=== PATIENT | male | born 1955 | race Caucasian/White ===

== ENCOUNTER 2019-08-06 22:27 | Emergency (ER) | payer OTHER ==
[~2019-08-06] VITALS: Ht 182.9 cm; Wt 181.4 kg
[2019-08-06 22:55] VITALS: Ht 182.9 cm; Wt 181.4 kg
[2019-08-06 23:28] LABS: BASOPHIL % 0.7 % (0-2); PLATELET COUNT 216 x10^3mcL (130-400); RED CELL DISTRIBUTION WIDTH 14.4 % (11.5-14.5)
[2019-08-06 23:37] LABS: CALCIUM 8.5 mg/dL (8.5-10.1); CARBON DIOXIDE 23.5 mmol/L (21-32); CHLORIDE SERUM 103 mmol/L (98-107); CREATININE SERUM 1.1 mg/dL (0.7-1.3); GFR1 > 60 mL/min; GLUCOSE SERUM 119 mg/dL (74-106); POTASSIUM SERUM 3.3 mmol/L (3.5-5.1); SODIUM SERUM 138 mmol/L (136-145)
[2019-08-06 23:42] LABS: ALBUMIN 3.4 g/dL (3.4-5.0); ALKALINE PHOSPHATASE 73 U/L (46-116); ALT/SGPT 17 U/L (16-63); AST/SGOT 29 U/L (15-37); BILIRUBIN TOTAL 0.93 mg/dL (0.20-1.00)
[2019-08-07 01:22] LABS: microscopic required? YES
[2019-08-07 01:24] LABS: UA SPECIFIC GRAVITY 1.005 (1.005-1.035)
[2019-08-07 01:25] LABS: urine erythrocyte 4+ (NEGATIVE)
[2019-08-07 04:25] VITALS: BP 100/58
== END 2019-08-07 04:25 | disposition home or self-care (01) ==
LOC: ED 22:27
PROVIDERS: Emergency Medicine
DX: R33.9 Retention of urine, unspecified (principal); R31.9 Hematuria, unspecified; N39.0 Urinary tract infection, site not specified
CPT/HCPCS: J0696; J7030; J7060; Q0092